=== PATIENT | male | born 1960 | race Caucasian/White ===

== ENCOUNTER 2017-04-15 09:20 | Emergency (ER) | payer OTHER ==
--- NOTE | ~2017-04-15 | CR72 ---
[facility]. [facility] A Service of [facility] & [facility] RADIOLOGY TEXT RESULTS PATIENT: NAVI HAWTHORNE LOCATION: SED : 58 UNIT #: [id number] AGE: [address]: Aleksey Sosa MD SEX: M ORDER DR: [id number] [address] [address] [id number] E MR#: [id number] Acc #: [id number] NAME: NAVI HAWTHORNE : 1960 SEX: M STUDY DATE/TIME: 04/15/2017 9:33 UNIT: SED ROOM: STUDY DESCRIPTION: CR Chest Single View Portable Attending Physician: Aleksey Sosa M.D. Ordering Physician: Aleksey Sosa M.D. Primary Care Physician: No Primary Care Physician MEDICAL IMAGING REPORT This report is preliminary unless electronic signature is present. EXAM Portable chest. INDICATIONS Shortness of air since last Monday, twitch in chest. COMPARISON 01/21/2014 FINDINGS A portable upright view of the chest was obtained. The heart size and vascularity are normal and the lungs are clear. The bones are unremarkable. IMPRESSION No active disease. Dictated by... Aleksey Paez M.D. THIS IS AN ELECTRONICALLY VERIFIED REPORT Aleksey Paez M.D. at 04/16/2017 9:35 PM Rosie TD: 04/15/2017 23:53 JOB #: [id number] MEDICAL IMAGING REPORT Page 1 of 1
--- NOTE | ~2017-04-15 | EKG ---
PATIENT: NAVI HAWTHORNE UNIT #: [id number] Ventricular Rate: 161 BPM Atrial Rate: 322 BPM QRS Duration: 76 ms Q-T Interval: 246 ms QTC Calculation(Bezet): 402 ms P [place]: 127 degrees Calculated R [place]: 25 degrees Calculated T [place]: 11 degrees Diagnosis Line: Atrial flutter with 2:1 A-V conduction Diagnosis Line: Possible Inferior infarct (cited on or before Diagnosis Line: 19-JAN-2014) Diagnosis Line: Abnormal ECG Diagnosis Line: When compared with ECG of 20-JAN-2014 06:45, Diagnosis Line: Atrial flutter has replaced Sinus rhythm Diagnosis Line: Vent. rate has increased BY 92 BPM Diagnosis Line: ST now depressed in Inferior leads Diagnosis Line: ST more depressed Lateral leads Diagnosis Line: Confirmed by CHRISTOPHER BECKFORD MD ([id number]) on Diagnosis Line: 04/17/2017 3:24:39 PM INTERPRETING MD: SHAKEEL GRAHAM
--- NOTE | ~2017-04-15 | EKG ---
PATIENT: NAVI HAWTHORNE UNIT #: [id number] Ventricular Rate: 81 BPM Atrial Rate: 324 BPM QRS Duration: 82 ms Q-T Interval: 368 ms QTC Calculation(Bezet): 427 ms P [place]: 232 degrees Calculated R [place]: 0 degrees Calculated T [place]: 26 degrees Diagnosis Line: Atrial flutter with 4:1 A-V conduction Diagnosis Line: Inferior infarct (cited on or before 19-JAN-2014) Diagnosis Line: Possible Anterior infarct , age undetermined Diagnosis Line: Abnormal ECG Diagnosis Line: When compared with ECG of 15-APR-2017 09:23, Diagnosis Line: (unconfirmed) Diagnosis Line: Vent. rate has decreased BY 80 BPM Diagnosis Line: ST no longer depressed in Inferior leads Diagnosis Line: ST no longer depressed in Anterolateral leads Diagnosis Line: Confirmed by CHRISTOPHER BECKFORD MD ([id number]) on Diagnosis Line: 04/17/2017 3:24:49 PM INTERPRETING MD: SHAKEEL GRAHAM
[~2017-04-15 09:20] MED LIST: ALEVE220 M1 PO; ASPIRIN81 MG PO; COREG6.25 MG PO; EFFIENT10 MG PO; LIPITOR80 MG PO; PLAVIX PO; ZESTRIL5 MG PO
[2017-04-15] MEDS ORDERED: NO MEDICATIONS (09:42)
[2017-04-15 09:59] LABS: BASOPHIL# 0.1 X10e3 (0-0.3); EOSINOPHIL# 0.1 X10e3 (0-0.7)
[2017-04-15 10:04] LABS: EOSINOPHIL% 0.7 % (0.0-7.0)
[2017-04-15 10:04] LABS: POC - CKMB <1.0 ng/mL (0.0-7.9)
[2017-04-15 10:05] LABS: POC - TROPONIN <0.05 ng/mL (<=0.05)
[2017-04-15 11:04] LABS: HEMATOCRIT 39.1 % (38.0-50.0); HEMOGLOBIN 13.2 gm/dL (13.0-16.0); LYMPHOCYTE# 1.8 X10e3 (1.0-3.5); LYMPHOCYTE% 20.1 % (17.0-45.0); MEAN CELL VOLUME 85.2 FL (83-96); MEAN CORPUSCULAR HEMOGLOBIN 28.7 PG (28-34); MEAN CORPUSCULAR HGB CONC 33.7 g/dL (30-36); MEAN PLATELET VOLUME 8.3 FL (6.5-11.5); MONOCYTE# 1.4 X10e3 (0-1.0); MONOCYTE% 15.3 % (3.0-12.0); NEUTROPHIL# 5.6 X10e3 (1.5-7.1); NEUTROPHIL% 62.9 % (40-75); PLATELET COUNT 278 X10e3 (140-420); RED BLOOD COUNT 4.59 X10e (3.90-5.60); RED CELL DISTRIBUTION WIDTH 13.5 % (11.0-15.5); WHITE BLOOD COUNT 8.9 X10e3 (4.0-10.5)
[2017-04-15 11:12] LABS: DIFF IND NO
[2017-04-15 11:17] LABS: POC - CKMB 1.4 ng/mL (0.0-7.9); POC - TROPONIN <0.05 ng/mL (<=0.05)
[2017-04-15 11:21] LABS: INR 1.4; PROTHROMBIN TIME (PATIENT) 15.6 SECONDS (9.5-12.4)
[2017-04-15 11:26] LABS: BILIRUBIN,TOTAL 0.7 mg/dL (0.2-2.0); BUN/CREATININE RATIO 13.63; CALCIUM SERUM 8.4 mg/dL (8.4-10.2); CREATININE SERUM 1.1 mg/dL (0.6-1.4); GLOM FILT RATE Estimated 74.1 mL/min (>60); MAGNESIUM 1.9 mg/dL (1.6-3.0); POTASSIUM 3.7 mmol/L (3.5-5.1); PROTEIN TOTAL SERUM 7.2 g/dL (6.0-8.3)
[2017-04-15 11:28] LABS: PARTIAL THROMBOPLASTIN TIME 32.6 SECONDS (25.6-38.1)
== END 2017-04-15 12:30 ==
LOC: SED 09:20
PROVIDERS: Emergency Medicine
DX: I48.92 Unspecified atrial flutter (principal); I48.91 Unspecified atrial fibrillation; E78.5 Hyperlipidemia, unspecified; I10 Essential (primary) hypertension; I25.2 Old myocardial infarction; F17.210 Nicotine dependence, cigarettes, uncomplicated
CPT/HCPCS: 71010; 80053; 82553; 83735; 83880; 84443; 84484; 85025; 85610; 85730; 93005; 96361; 96372; 96374; 96376; 99291; J1650